=== PATIENT | female | born 1990 | race Hispanic/Latino ===

== ENCOUNTER 2021-04-06 06:29 | Day surgery (SDC) | payer OTHER ==
[2021-04-05 11:33] LABS: BASOPHILS % (AUTO) 0.8 % (0.0-5.0); HEMATOCRIT 42.1 % (36-48); MEAN CORPUSCULAR HEMOGLOBIN 27.1 pg (27.0-33.0); MEAN CORPUSCULAR HGB CONC 32.5 g/dL (32.0-36.0); MEAN CORPUSCULAR VOLUME 83.4 fL (79-99); MONOCYTES % (AUTO) 6.1 % (3.0-13.0); NEUTROPHILS % (AUTO) 58.8 % (40.0-77.0); PLATELET COUNT (AUTO) 330 K/uL (130-400); RED BLOOD CELL COUNT(AUTO) 5.05 MIL/uL (4.00-5.50); WHITE BLOOD COUNT (AUTO) 7.8 K/uL (4.8-10.8)
[2021-04-05 11:44] LABS: INR 1.01 (0.85-1.15)
[2021-04-05 11:45] LABS: PARTIAL THROMBOPLASTIN TIME 28.5 SEC (26.3-35.5)
[2021-04-05 11:47] LABS: CREATININE 0.7 mg/dL (0.5-1.5); POTASSIUM 3.9 mmol/L (3.5-5.1)
[2021-04-05 13:03] VITALS: BP 135/68
[2021-04-06] VITALS (9 sets, daily range): BP systolic 104–155; BP diastolic 61–89
[~2021-04-06] VITALS: Ht 170.2 cm; Wt 150.1 kg
[~2021-04-06 06:29] MED LIST: ALBU90AE2 IH; DOXY100C5 PO; FLEC150T2 PO; HYDR-3421 PO; LEVO100C4 PO; LORA2TAB80 PO; MAGN250T10 PO; METF-444 PO; TRAM50TA4 PO
[2021-04-06] MEDS ORDERED: 0.9%NACL 1000ML 1,000 ML IV ONE (07:02)
[2021-04-06] MEDS ORDERED: MIDAZOLAM HCL 1 MG/ML 2ML VIAL ONE ×5 (08:32→11:24)
[2021-04-06] MEDS ORDERED: LIDOCAINE HCL 400MG/20ML VIAL ONE ×2 (08:32→09:53)
[2021-04-06] MEDS ORDERED: MEPERIDINE-PF 25 MG/ML SYG ONE ×5 (08:32→11:24)
[2021-04-06] MEDS ORDERED: HEPARIN 10,000 UNIT/10ML (1,000 UNIT/ML) VIAL ONE (08:33)
[2021-04-06] MEDS ORDERED: ISOPROTERENOL HCL 0.2 MG/ML AMP/VIAL/BAG ONE (11:17)
== END 2021-04-06 16:05 | disposition home or self-care (01) ==
LOC: DAH 06:29
PROVIDERS: ATTEND Internal Medicine Cardiovascular Disease
DX: I47.1 Supraventricular tachycardia (principal); G47.30 Sleep apnea, unspecified; E03.9 Hypothyroidism, unspecified; E66.9 Obesity, unspecified; Z79.01 Long term (current) use of anticoagulants; Z79.899 Other long term (current) drug therapy; Z87.891 Personal history of nicotine dependence
CPT/HCPCS: 36415; 80048; 82948 ×2; 84703; 85025; 85610; 85730; 93005; 93613; 93621; 93623; 93653; A4215; A4216; A4221; A4222; A4223 ×3; A4606; A4649 ×2; A4663; C1730 ×4; C1732; C1894 ×5; J1644 ×2; J2175 ×5; J2250 ×5; J3490 ×3; J7030; 99156; 99157